=== PATIENT | female | born 1970 | race Caucasian/White ===

== ENCOUNTER → 2018-01-03 | Outpatient (CLI) | payer OTHER ==
[~2018-01-03] MED LIST: Bactrim Ds Tab1 EACH PO; Percocet 5-3251 EACH PO
[2018-01-04 14:05] LABS: HPV Genotype 16 Not Detected (NOTDET); HPV Genotype 18 Not Detected (NOTDET)
[2018-01-07 14:23] LABS: HPV High Risk Other Not Detected (NOTDET)
== END ==
LOC: LAB 10:53 → LAB SHORT 10:53
PROVIDERS: Nurse Practitioner Family
DX: Z12.4 Encounter for screening for malignant neoplasm of cervix (principal)
CPT/HCPCS: 87624; G0145

== ENCOUNTER 2019-07-23 12:01 | Day surgery (SDC) | payer OTHER ==
[~2019-07-23] VITALS: Ht 170.2 cm; Wt 83.8 kg
[2019-07-23] MEDS ORDERED: HYDHCL25 (13:05)
[2019-07-23] MEDS ORDERED: PARO30 (13:05)
== END 2019-07-23 15:51 | disposition home or self-care (01) ==
LOC: ORSCSDS 12:01
PROVIDERS: Podiatrist
PROC: 0JNQ0ZZ Release Right Foot Subcutaneous Tissue and Fascia, Open Approach (ICD-10-PCS; principal; 2019-07-23 13:15)
DX: M72.2 Plantar fascial fibromatosis (principal); Z79.899 Other long term (current) drug therapy; Z87.891 Personal history of nicotine dependence
CPT/HCPCS: J0690; J1100; J2001; J2250; J2405; J2704; J3010; J7120

== ENCOUNTER → 2024-01-17 | Outpatient (CLI) | payer OTHER | LOC: LAB SHORT 10:35 → LAB 10:35 → LAB FUT 01-16 12:55 | DX: R30.0 Dysuria (principal) ==